=== PATIENT | female | born 2000 | race Caucasian/White ===

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

== ENCOUNTER 2022-09-13 06:39 | Emergency (ER) | payer MEDICAID ==
[~2022-09-13] VITALS: Ht 160 cm; Wt 54.0 kg
[2022-09-13 07:17] VITALS: BP_SYST 120
[2022-09-13] MEDS ORDERED: GUAI-723 PO (09:37)
[2022-09-13] MEDS ORDERED: BENZ100C92 PO (09:37)
[2022-09-13 10:10] VITALS: BP_SYST 122
== END 2022-09-13 10:10 | disposition home or self-care (01) ==
LOC: SED 06:39
DX: J06.9 Acute upper respiratory infection, unspecified (principal); R05.9 Cough, unspecified; R06.02 Shortness of breath; Z79.899 Other long term (current) drug therapy
CPT/HCPCS: 71046-TC; 81025; 99283